=== PATIENT | female | born 1985 | race Caucasian/White ===

== ENCOUNTER 2016-08-01 22:42 | Emergency (ER) | payer MEDICAID, MEDICARE ==
[~2016-08-01 22:42] MED LIST: ALBU0.086 INH; ALBU0.086 NEB; ALBU0.63 NEB; ALBU8I INH; AZIT250T43 PO; BACT800T5 PO; PRED20 PO
[2016-08-01 22:47] VITALS: BP 127/68; PULSE 102; RESP 16; TEMP 97.8; O2SAT 98
--- NOTE | 2016-08-02 00:08 | RADRPT ---
EXAM DATE/TIME: 08/01/2016 23:40 [facility] COMPARISON: No previous studies available for comparison. INDICATIONS : Left foot pain post fall. MEDICAL HISTORY : Unobtainable. SURGICAL HISTORY : Unobtainable. ENCOUNTER: Initial ACUITY: 1 day PAIN SCORE: Non-responsive. LOCATION: Left foot. FINDINGS: Three view examination of the left foot demonstrates no soft tissue swelling, dislocation, or fractur e. The tarsal bones appear intact. The interphalangeal and metatarsophalangeal joints are intact. The calcaneus is intact. Mild spurring of the calcaneus. Bony mineralization is normal. CONCLUSION: 1. Mild spurring of the calcaneus. Otherwise, unremarkable exam. Jerrell Alvarez Jr., MD on August 02, 2016 at 0:05 Board Certified Radiologist. This report was verified electronically.
--- NOTE | 2016-08-02 00:09 | RADRPT ---
EXAM DATE/TIME: 08/01/2016 23:42 [facility] COMPARISON: ANKLE LEFT COMPLETE ([id number]), September 21, 2012, 16:42. INDICATIONS : Left ankle pain post fall. MEDICAL HISTORY : Unobainable. SURGICAL HISTORY : Unobtainable. ENCOUNTER: Initial ACUITY: 1 day PAIN SCORE: Non-responsive. LOCATION: Left ankle. FINDINGS: Three view exam was performed of the left ankle. The bony structures are in normal alignment. No ev idence of fracture, dislocation, or soft tissue swelling. The ankle mortise is intact. No radiopaqu e foreign bodies are seen. Bony mineralization is normal. CONCLUSION: Unremarkable examination of the left ankle. Jerrell Alvarez Jr., MD on August 02, 2016 at 0:07 Board Certified Radiologist. This report was verified electronically.
[2016-08-02] MEDS ORDERED: NAPR500T PO (01:06)
--- NOTE | 2016-08-02 01:06 | PD ---
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 31-year-old female presents for evaluation of left foot and ankle pain. She reports that prior to arrival she slipped in the rain and fell, injuring her left foot and ankle. She now has pain which is worse when ambulating, relieved with rest. She denies any other injuries and she has no other complaints at this time. PFSH Past Medical History Hx Anticoagulant Therapy: No Asthma: Yes Cardiovascular Problems: No Chemotherapy: No Cerebrovascular Accident: No Diabetes: No Diminished Hearing: Yes (deaf COCHLEAR IMPLANT) Reproductive: Yes (OVARIAN CYST) Respiratory: Yes Seizures: Yes (last seizure in 2008) ?: Not Menopausal: No : 1 Para: 1 Miscarriage: 0 : 0 Ovarian Cysts: Yes Past Surgical History Section: Yes Ear Surgery: Yes Gynecologic Surgery: Yes (cyst removed) Hysterectomy: No Other Surgery: Yes (cochlear implant) Social History Alcohol Use: No Tobacco Use: No Substance Use: No Allergies-Medications (Allergen,Severity, Reaction): Coded Allergies: No Known Allergies (Unverified , 08/01/16) Reported Meds & Prescriptions Reported Meds & Active Scripts Active Proventil Ud 0.083% (2.5 Mg/3 Ml) (Albuterol Sulfate) 2.5 Mg/3 Ml Inha 2.5 Mg INH Q4 Ventolin Hfa (Albuterol Sulfate) 8 Gm Aero 2 Puff INH Q6 * SHAKE WELL BEFORE USE * Azithromycin 250 Mg Tab 250 Mg PO DAILY 4 Days Deltasone 20 Mg Tab (Prednisone) 20 Mg Tab 60 Mg PO DAILY 4 Days Proventil Ud 0.083% (2.5 Mg/3 Ml) (Albuterol Sulfate) 2.5 Mg/3 Ml Inha 2.5 Mg NEB Q4HR NEB PRN Accuneb 0.63 mg/3 ml (Albuterol Sulfate) 0.63 Mg/3 Ml Neb 0.63 Mg NEB Q4 Bactrim DS (Sulfamethoxazole-Trimethoprim DS) 1 Tab Tab 1 Tab PO Q12HR 10 Days Deltasone (Prednisone) 20 Mg Tab 40 Mg PO DAILY 5 Days Reported Ventolin Hfa (Albuterol Sulfate) 8 Gm Aero 2 Puff INH Q6 * SHAKE WELL BEFORE USE * Review of Systems Musculoskeletal: Positive: Pain Skin: Positive Other (no open wounds) Physical Exam Narrative GENERAL: Well-developed well-nourished female in no acute distress SKIN: Warm and dry. No bruising or soft tissue swelling CARDIOVASCULAR: Regular rate and rhythm. No murmur appreciated. RESPIRATORY: No accessory muscle use. Clear to auscultation. Breath sounds equal bilaterally. MUSCULOSKELETAL: No obvious deformities. Tender to palpation localized to the dorsal proximal left foot. The patient maintains full range of motion of the left foot and ankle. She has pain with dorsi and plantar flexion against resistance. The Achilles tendon is intact and nontender. No tenderness to palpation of the medial or lateral ankle joint. Data Data Last Documented VS Vital Signs Date Time Temp Pulse Resp B/P Pulse Ox O2 Delivery O2 Flow Rate FiO2 08/01/16 22:47 97.8 102 16 127/68 98 Orders Ankle, Complete ([id number]) (08/01/16 ) Foot, Complete ([id number]) (08/01/16 ) Crutches (08/02/16 01:05) Ibuprofen (Motrin) (08/02/16 01:15) MDM Medical Decision Making Medical Screen Exam Complete: Yes Emergency Medical Condition: Yes Medical Record Reviewed: Yes Differential Diagnosis Foot strain, Lisfranc injury, metatarsal fracture, tarsal fracture, contusion, sprain Narrative Course X-ray imaging left foot and ankle were obtained and are negative. The patient appears to have a foot strain. She is being discharged with crutches as well as a prescription for naproxen. Diagnosis Primary Impression: Strain of left foot Qualified Code: S96.912A - Strain of left foot, initial encounter Additional Instructions: Medication as needed. Take with meals. Crutches as needed. Ice pack several times a day 10-15 minutes at a time. Follow-up with primary care physician in 2 weeks and return for any emergent medical conditions. Med/Other Pt SpecificInfo: Prescription(s) given, Orthopedic Instructions Scripts Naproxen 500 Mg [id number] Mg PO BID 14 Days Ref 0 Prov:Marry Campos MD 08/02/16 Disposition: 01 DISCHARGE HOME Condition: Stable Aidan Bolton Aug 02, 2016 01:06
[2016-08-02] MEDS ORDERED: IBUPROFEN 800 MG TAB PO ONE (01:15)
== END 2016-08-02 01:43 | disposition home or self-care (01) ==
LOC: NETRI 22:42
DX: S96.912A Strain of unspecified muscle and tendon at ankle and foot level, left foot, initial encounter (principal); H91.90 Unspecified hearing loss, unspecified ear; W01.0XXA Fall on same level from slipping, tripping and stumbling without subsequent striking against object, initial encounter; Y93.89 Activity, other specified; Y92.9 Unspecified place or not applicable; Y99.9 Unspecified external cause status
CPT/HCPCS: 73610; 73630; 99283; E0113

== ENCOUNTER 2016-08-21 21:13 | Emergency (ER) | payer MEDICARE ==
[~2016-08-21 21:13] MED LIST changes: +NAPR500T PO
[2016-08-21 21:15] VITALS: BP 142/79; PULSE 124; RESP 20; TEMP 97.9; O2SAT 99
[2016-08-21] MEDS ORDERED: IBUPROFEN 800 MG TAB PO ONE (22:45)
--- NOTE | 2016-08-21 22:48 | PD ---
HPI Chief Complaint: Injury Time Seen by Provider: 22:45 Travel History International Travel<30 days: No Contact w/Intl Traveler<30days: No Traveled to known affect area: No History of Present Illness HPI 31-year-old white female presents to emergency Department with complaints of left foot pain. She states that she twisted her left foot earlier this evening when she fell. No other injuries. Pain is mild to moderate. Worse with weightbearing. Some relief with elevation. No neck or back pain. PFSH Past Medical History Hx Anticoagulant Therapy: No Asthma: Yes Cardiovascular Problems: No Chemotherapy: No Cerebrovascular Accident: No Diabetes: No Diminished Hearing: Yes (deaf COCHLEAR IMPLANT) Reproductive: Yes (OVARIAN CYST) Respiratory: Yes Seizures: Yes (last seizure in 2008) Tetanus Vaccination: < 5 Years ?: Not Menopausal: No : 1 Para: 1 Miscarriage: 0 : 0 Ovarian Cysts: Yes Past Surgical History Section: Yes Ear Surgery: Yes Gynecologic Surgery: Yes (cyst removed) Hysterectomy: No Other Surgery: Yes (cochlear implant) Social History Alcohol Use: No Tobacco Use: No Substance Use: No Allergies-Medications (Allergen,Severity, Reaction): Coded Allergies: No Known Allergies (Unverified , 08/21/16) Reported Meds & Prescriptions Reported Meds & Active Scripts Active Naproxen 500 Mg Tab 500 Mg PO BID 14 Days Proventil Ud 0.083% (2.5 Mg/3 Ml) (Albuterol Sulfate) 2.5 Mg/3 Ml Inha 2.5 Mg INH Q4 Ventolin Hfa (Albuterol Sulfate) 8 Gm Aero 2 Puff INH Q6 * SHAKE WELL BEFORE USE * Azithromycin 250 Mg Tab 250 Mg PO DAILY 4 Days Deltasone 20 Mg Tab (Prednisone) 20 Mg Tab 60 Mg PO DAILY 4 Days Proventil Ud 0.083% (2.5 Mg/3 Ml) (Albuterol Sulfate) 2.5 Mg/3 Ml Inha 2.5 Mg NEB Q4HR NEB PRN Accuneb 0.63 mg/3 ml (Albuterol Sulfate) 0.63 Mg/3 Ml Neb 0.63 Mg NEB Q4 Bactrim DS (Sulfamethoxazole-Trimethoprim DS) 1 Tab Tab 1 Tab PO Q12HR 10 Days Deltasone (Prednisone) 20 Mg Tab 40 Mg PO DAILY 5 Days Reported Ventolin Hfa (Albuterol Sulfate) 8 Gm Aero 2 Puff INH Q6 * SHAKE WELL BEFORE USE * Review of Systems Except as stated in HPI: all other systems reviewed are Neg Physical Exam Narrative GENERAL: This is a well-nourished, well-developed patient, in no apparent distress. SKIN: No rashes, ecchymoses or lesions. Warm and dry. HEAD: Atraumatic. Normocephalic. EYES: PERRL, EOMI, no discharge or injection. No scleral icterus. EARS: Clear NOSE: Nasal turbinates appear normal. THROAT: Mucosa pink and moist. Airway patent. NECK: Trachea midline. supple, moves head freely. LUNGS: Clear to auscultation. CV: Regular in rhythm. ABDOMEN: Soft nontender. EXT: No clubbing cyanosis or edema. Examination of left foot reveals tenderness along the fourth and fifth metatarsal. The skin is intact. No pain in the ankle, heel, Achilles, or toes. She has intact sensation with good pulses. No ecchymosis. Antalgic gait due to pain Data Data Last Documented VS Vital Signs Date Time Temp Pulse Resp B/P Pulse Ox O2 Delivery O2 Flow Rate FiO2 08/21/16 21:15 97.9 124 20 142/79 99 Orders Foot, Complete ([id number]) (08/21/16 22:44) Ice/Cold Pack (08/21/16 22:44) Ibuprofen (Motrin) (08/21/16 22:45) Splint Or Brace Apply/Monitor (08/21/16 22:48) Crutches (08/21/16 22:48) MDM Medical Decision Making Medical Screen Exam Complete: Yes Emergency Medical Condition: Yes Medical Record Reviewed: Yes Interpretation(s) Left foot: Negative for acute fracture. Differential Diagnosis MDM: High Differential diagnoses: Fracture, sprain, strain, dislocation, contusion, neurovascular injury Narrative Course X-ray of the left foot is negative for bony injury. Patient's given Motrin 800 mg by mouth and ice pack. Jose wrap applied. Crutches. This is left foot sprain Diagnosis Primary Impression: Sprain of left foot Qualified Code: S93.602A - Sprain of left foot, initial encounter Patient Instructions: General Instructions Additional Instructions: Rest. Elevation. Ice packs for the next 3 days. Jose wrap and crutches. No weight-bearing and then progress to weight-bearing as tolerated. 3 Advil every 6 hours. Follow-up with a senior manufacturing supervisor or your doctor in one week. Return to the ER if any problems Med/Other Pt SpecificInfo: No Change to Meds Disposition: 01 DISCHARGE HOME Condition: Stable Jackson Castañeda Aug 21, 2016 22:47
--- NOTE | 2016-08-21 23:16 | RADRPT ---
EXAM DATE/TIME: 08/21/2016 22:49 [facility] COMPARISON: FOOT LEFT COMPLETE ([id number]), August 01, 2016, 23:40. INDICATIONS : Fall. Left foot pain. MEDICAL HISTORY : None. SURGICAL HISTORY : None. ENCOUNTER: Initial ACUITY: 1 day PAIN SCORE: 7/10 LOCATION: Left lateral FINDINGS: Three view examination of the left foot demonstrates no dislocation, or fracture. There is some nonsp ecific soft tissue swelling. The tarsal bones appear intact. The interphalangeal and metatarsophala ngeal joints are intact. The calcaneus is intact. There is a healed spur present. Bony mineralizatio n is normal. No significant change compared to the prior study. CONCLUSION: 1. Nonspecific soft tissue swelling. 2. No acute fracture or joint dislocation 3. Heel spur Cirilo Siddiqui MD on August 21, 2016 at 23:13 Board Certified Radiologist. This report was verified electronically.
== END 2016-08-21 23:49 | disposition home or self-care (01) ==
LOC: NEPD 21:13
DX: S93.602A Unspecified sprain of left foot, initial encounter (principal); W18.30XA Fall on same level, unspecified, initial encounter; X50.1XXA Overexertion from prolonged static or awkward postures, initial encounter
CPT/HCPCS: 73630; 99283; E0113

== ENCOUNTER 2016-09-29 08:53 | Emergency (ER) | payer MEDICARE, OTHER ==
[~2016-09-29] VITALS: Ht 160 cm; Wt 108.4 kg
[2016-09-29 08:57] VITALS: BP 137/82; PULSE 99; RESP 16; TEMP 97.8; O2SAT 98
[2016-09-29] MEDS ORDERED: MORPHINE SULFATE 4 MG/ML INJ IV PUSH ONE ×2 (09:30→11:30)
[2016-09-29] MEDS ORDERED: ONDANSETRON HCL 4 MG/2 ML VIAL IV PUSH ONE (09:30)
[2016-09-29] MEDS ORDERED: SODIUM CHLOR 0.9% 1000 ML INJ 1,000 ML IV ONE (09:30)
[2016-09-29 10:02] LABS: AUTOMATED NEUTROPHIL # 6.6 TH/MM3 (1.8-7.7); BASOPHIL # 0.1 TH/MM3 (0-0.2); BASOPHIL % 0.7 % (0.0-2.0); EOSINOPHIL # 0.3 TH/MM3 (0-0.4); EOSINOPHIL % 3.1 % (0.0-4.0); HEMATOCRIT 40.2 % (35.0-46.0); HEMO FLAGS DIFF FINAL; LYMPH % 29.5 % (9.0-44.0); LYMPHOCYTE # 3.2 TH/MM3 (1.0-4.8); MEAN CELL VOLUME 85.9 FL (80.0-100.0); MEAN CORPUSCULAR HEMOGLOBIN 28.1 PG (27.0-34.0); MEAN CORPUSCULAR HGB CONC 32.7 % (32.0-36.0); MONO % 5.8 % (0.0-8.0); NEUT % 60.9 % (16.0-70.0); PLATELET COUNT 331 TH/MM3 (150-450); RED BLOOD COUNT 4.68 MIL/MM3 (4.00-5.30); WHITE BLOOD COUNT 10.8 TH/MM3 (4.0-11.0)
--- NOTE | 2016-09-29 10:05 | PD ---
HPI Chief Complaint: Abdominal Pain Time Seen by Provider: 09:05 Travel History International Travel<30 days: No Contact w/Intl Traveler<30days: No Traveled to known affect area: No History of Present Illness HPI This is a 31-year-old female who is hearing impaired who presents to the emergency department with chest and upper abdominal pain that started overnight , intermittent, moderate severity, associated with nausea. She says the pain gets worse when she lays down. She denies any fevers or chills. She's never had pain like this before. She hasn't been able to eat today. She denies any dysuria, vaginal bleeding, vaginal discharge, diarrhea or constipation. She's had no sexual partners in the last 6 months. History was obtained via video highway administrative engineer. Patient was offered a live highway administrative engineer but accepted video translation. PFSH Past Medical History Hx Anticoagulant Therapy: No Asthma: Yes Cardiovascular Problems: No Chemotherapy: No Cerebrovascular Accident: No Diabetes: No Diminished Hearing: Yes (deaf COCHLEAR IMPLANT) Reproductive: Yes (OVARIAN CYST) Respiratory: Yes Seizures: Yes (last seizure in 2008) ?: Unknown LMP: SECOND WEEK OF AUGUST Menopausal: No : 1 Para: 1 Miscarriage: 0 : 0 Ovarian Cysts: Yes Past Surgical History Section: Yes Ear Surgery: Yes Gynecologic Surgery: Yes (cyst removed) Hysterectomy: No Other Surgery: Yes (cochlear implant) Social History Alcohol Use: Yes (AT TIMES WINE) Tobacco Use: No Substance Use: No Allergies-Medications (Allergen,Severity, Reaction): Coded Allergies: No Known Allergies (Unverified , 08/21/16) Reported Meds & Prescriptions Reported Meds & Active Scripts Active Review of Systems ROS Limitations: Hearing Impaired Physical Exam Narrative GENERAL:Well appearing, no acute distress SKIN: Focused skin assessment warm and dry. HEAD: Atraumatic. Normocephalic. EYES: Pupils equal and round. No injection or drainage. ENT: Moist mucous membranes NECK: Trachea midline. CARDIOVASCULAR: Regular rate and rhythm. No murmur appreciated. RESPIRATORY: Clear to auscultation. Breath sounds equal bilaterally. GASTROINTESTINAL: Abdomen soft, tender to palpation in the right upper quadrant and epigastrium with some guarding MUSCULOSKELETAL: No obvious deformities. NEUROLOGICAL: Awake and alert. No obvious cranial nerve deficits. Moving all extremities. PSYCHIATRIC: Appropriate mood and affect; insight and judgment normal. Data Data Last Documented VS Vital Signs Date Time Temp Pulse Resp B/P Pulse Ox O2 Delivery O2 Flow Rate FiO2 09/29/16 11:00 89 18 131/83 98 09/29/16 08:57 97.8 Orders Urinalysis - C+S If Indicated (09/29/16 09:06) Ed Urine Pregnancytest Poc (09/29/16 09:06) Complete Blood Count With Diff (09/29/16 09:28) Comprehensive Metabolic Panel (09/29/16 09:28) Lipase (09/29/16 09:28) ^ Insert Iv (09/29/16 09:28) Morphine Inj (Morphine Inj) (09/29/16 09:30) Ondansetron Inj (Zofran Inj) (09/29/16 09:30) Sodium Chlor 0.9% 1000 Ml Inj (Ns 1000 M (09/29/16 09:30) Electrocardiogram (09/29/16 ) Us Abdomen Gallbladder (09/29/16 ) Morphine Inj (Morphine Inj) (09/29/16 11:30) Labs Laboratory Tests Test 09/29/16 09/29/16 09:40 09:49 Urine Color YELLOW Urine Turbidity HAZY Urine pH 5.5 Urine Specific [place] 1.020 Urine Protein NEG mg/dL Urine Glucose (UA) NEG mg/dL Urine Ketones NEG mg/dL Urine Occult Blood NEG Urine Nitrite NEG Urine Bilirubin NEG Urine Urobilinogen LESS THAN 2.0 MG/DL Urine Leukocyte Esterase SMALL Urine RBC LESS THAN 1 /hpf Urine WBC 5 /hpf Urine Squamous Epithelial 15 /hpf Cells Urine Calcium Oxalate Crystals FEW /hpf Urine Bacteria OCC /hpf Urine Mucus FEW /lpf Microscopic Urinalysis Comment CULT NOT INDICATED White Blood Count 10.8 TH/MM3 Red Blood Count 4.68 MIL/MM3 Hemoglobin 13.2 GM/DL Hematocrit 40.2 % Mean Corpuscular Volume 85.9 FL Mean Corpuscular Hemoglobin 28.1 PG Mean Corpuscular Hemoglobin 32.7 % Concent Red Cell Distribution Width 14.0 % Platelet Count 331 TH/MM3 Mean Platelet Volume 8.3 FL Neutrophils (%) (Auto) 60.9 % Lymphocytes (%) (Auto) 29.5 % Monocytes (%) (Auto) 5.8 % Eosinophils (%) (Auto) 3.1 % Basophils (%) (Auto) 0.7 % Neutrophils # (Auto) 6.6 TH/MM3 Lymphocytes # (Auto) 3.2 TH/MM3 Monocytes # (Auto) 0.6 TH/MM3 Eosinophils # (Auto) 0.3 TH/MM3 Basophils # (Auto) 0.1 TH/MM3 CBC Comment DIFF FINAL Differential Comment Sodium Level 137 MEQ/L Potassium Level 3.9 MEQ/L Chloride Level 102 MEQ/L Carbon Dioxide Level 28.7 MEQ/L Anion Gap 6 MEQ/L Blood Urea Nitrogen 14 MG/DL Creatinine 0.58 MG/DL Estimat Glomerular Filtration 120 ML/MIN Rate Random Glucose 120 MG/DL Calcium Level 8.9 MG/DL Total Bilirubin 0.2 MG/DL Aspartate Amino Transf 10 U/L (AST/SGOT) Alanine Aminotransferase 22 U/L (ALT/SGPT) Alkaline Phosphatase 94 U/L Total Protein 7.4 GM/DL Albumin 3.5 GM/DL Lipase 265 U/L [facility] Medical Decision Making Medical Screen Exam Complete: Yes Emergency Medical Condition: Yes Interpretation(s) Afebrile, normotensive No leukocytosis Electrolytes are reassuring Lipase is normal Urinalysis is contaminated with squamous epithelial cells [id number] test is negative Last 24 hours Impressions Gall Bladder Ultrasound 09/29/16 0000 Signed Impressions: Service Date/Time: , September 29, 2016 10:22 - CONCLUSION: 1. Cholelithiasis without sonographic evidence for acute cholecystitis. 2. Diffusely decreased hepatic attenuation without evidence for volume loss most consistent with hepatic steatosis. Chucky Dasilva MD Differential Diagnosis Cholelithiasis, cholecystitis, gastritis, peptic ulcer disease, pancreatitis Narrative Course This is a 31-year-old female who presents to the emergency department with upper abdominal discomfort. She has no fevers and no vomiting. She was placed on a monitor and an IV was established. She was given IV pain control and IV hydration. Labs are reassuring with no leukocytosis and normal biliary labs. Ultrasound was obtained which demonstrates gallstones but no evidence of acute cholecystitis. I think patient has symptomatic biliary colic. I did discuss this with her with a live hand hardener at the bedside and she expressed understanding and had no further questions. I explained to her that if she develops fevers, vomiting or feels worse she should return to the emergency department as this may reflect the development of acute cholecystitis. At this point I think she is safe to follow-up with a general surgeon in clinic and I gave her referral for this. Diagnosis Primary Impression: Cholelithiasis Qualified Code: K80.20 - Calculus of gallbladder without cholecystitis without obstruction Referrals: [facility] Patient Instructions: General Instructions Additional Instructions: If you develop severe or worsening abdominal pain, fever>100.4, persistent vomiting or inability to eat or drink return to the emergency department immediately. Follow-up with a general surgeon in regards to your gallbladder. Med/Other Pt SpecificInfo: Prescription(s) given Scripts Ondansetron Odt (Zofran Odt)4 Mg Tab4 Mg SL Q6HR PRN (Nausea/Vomiting) #10 TAB Ref 0 Prov:Nelsy Hanley MD 09/29/16 Hydrocodone-Acetaminophen (Lortab)5-325 Mg Tab1 Tab PO Q6H PRN (PAIN) #10 TAB Ref 0 Prov:Nelsy Hanley MD 09/29/16 Disposition: 01 DISCHARGE HOME Condition: Stable Nelsy Hanley MD Sep 29, 2016 10:04
[2016-09-29 10:08] LABS: BACTERIA, URINE OCC /hpf; BLOOD, URINE NEG (NEG); CALCIUM OXALATE CRYSTALS,URINE FEW /hpf; COMMENT (UR) CULT NOT INDICATED; CULTURE IF INDICATED CULT NOT INDICATED; GLUCOSE,URINE NEG (NEG); KETONE, URINE NEG (NEG); MUCUS URINE FEW /lpf (OCC); NITRITE,URINE NEG (NEG); PH, URINE 5.5 (5.0-8.5); SQUAMOUS EPITHELIAL CELL URINE 15 /hpf (0-5); URINE COLOR YELLOW (YELLW/STRAW)
[2016-09-29 10:16] LABS: ALT (GPT) 22 U/L (10-53); ANION GAP 6 MEQ/L (5-15); AST (GOT) 10 U/L (15-37); BICARBONATE 28.7 MEQ/L (21.0-32.0); BLOOD UREA NITROGEN 14 MG/DL (7-18); CHLORIDE 102 MEQ/L (98-107); GLOMERULAR FILTRATION RATE 120 ML/MIN (>89); POTASSIUM 3.9 MEQ/L (3.5-5.1); SODIUM (NA) 137 MEQ/L (136-145)
[2016-09-29 10:19] LABS: ALKALINE PHOSPHATASE 94 U/L (45-117); TOTAL BILIRUBIN ADULT 0.2 MG/DL (0.2-1.0)
[2016-09-29 11:00] VITALS: BP 131/83; PULSE 89; RESP 18; O2SAT 98
--- NOTE | 2016-09-29 11:14 | RADRPT ---
EXAM DATE/TIME: 09/29/2016 10:22 [facility] COMPARISON: No previous studies available for comparison. INDICATIONS : Right upper quadrant pain. MEDICAL HISTORY : Deaf. Seizures. Asthma. Ovarian cysts. SURGICAL HISTORY : Carpal tunnel syndrome. Cochlear implant. Ovarian cyst removed. ENCOUNTER: Initial ACUITY: 1 day PAIN SCORE: 2/10 LOCATION: Right upper quadrant MEASUREMENTS: LIVER: 16.4 cm length COMMON DUCT: 5 mm RIGHT KIDNEY: 10.9 x 5.2 x 4.9 cm FINDINGS: LIVER: Slight diffusely decreased attenuation of the liver without evidence for volume loss or focal mass. COMMON DUCT: No intraluminal mass or stone visualized. GALLBLADDER: Multiple gallstones are noted in the gallbladder which otherwise appears unremarkable without signifi cant bulbar wall thickening, pericholecystic fluid, or sonographic Ruelas's sign. PANCREAS: The visualized portions are within normal limits. RIGHT KIDNEY: No evidence of hydronephrosis, stone, or mass. CONCLUSION: 1. Cholelithiasis without sonographic evidence for acute cholecystitis. 2. Diffusely decreased hepatic attenuation without evidence for volume loss most consistent with hepa tic steatosis. Chucky Dasilva MD on September 29, 2016 at 11:09 Board Certified Radiologist. This report was verified electronically.
--- NOTE | 2016-09-29 11:16 | EKG ---
Date Performed: 09/29/2016 Time Performed: 09:36:28 PTAGE: 31 years EKG: Sinus rhythm NON-SPECIFIC ST/T WAVE CHANGES NO PREVIOUS TRACING DOCTOR: Jovani Combs Interpretating Date/Time 09/29/2016 11:15:24
[2016-09-29] MEDS ORDERED: ZOFR4TAB3 SL (11:36)
[2016-09-29] MEDS ORDERED: HYDR-3533 PO (11:36)
[2016-09-29 12:15] VITALS: BP 128/81
== END 2016-09-29 12:16 | disposition home or self-care (01) ==
LOC: NEPD 08:53
DX: K80.20 Calculus of gallbladder without cholecystitis without obstruction (principal); K76.0 Fatty (change of) liver, not elsewhere classified; H91.90 Unspecified hearing loss, unspecified ear
CPT/HCPCS: 76705; 80053; 81001; 83690; 84703; 85025; 93005; 96361; 96374; 96375; 99285; J2270; J2405; J7030